=== PATIENT | male | born 1985 | race Caucasian/White ===

== ENCOUNTER 2017-05-15 21:34 | Emergency (ER) | payer OTHER ==
[2017-05-16] MEDS: IBUPROFEN 600 MG TAB PO (02:25)
== END 2017-05-16 03:46 | disposition home or self-care (01) ==
LOC: FTE 21:34
DX: S92.504A Nondisplaced unspecified fracture of right lesser toe(s), initial encounter for closed fracture (principal); F17.210 Nicotine dependence, cigarettes, uncomplicated; W22.8XXA Striking against or struck by other objects, initial encounter; Y92.9 Unspecified place or not applicable
CPT/HCPCS: 73630; 99283-25

== ENCOUNTER 2018-02-11 18:31 | Emergency (ER) | payer OTHER ==
[2018-02-11] MEDS: HYDROCODONE/APAP (5/325) TAB PO (20:46)
== END 2018-02-11 22:27 | disposition home or self-care (01) ==
LOC: FTE 18:31
DX: M25.561 Pain in right knee (principal); F17.210 Nicotine dependence, cigarettes, uncomplicated
CPT/HCPCS: 29505; 73562; 99283-25